=== PATIENT | male | born 1950 | race Caucasian/White ===

== ENCOUNTER 2017-06-21 13:11 | Emergency (ER) | payer OTHER ==
[~2017-06-21] VITALS: Ht 165.1 cm; Wt 108.9 kg
[~2017-06-21 13:11] MED LIST: AMLO5 PO; ASPI81CH PO; ATOR80 PO; CARV25 PO; CHLO25B PO; CLOP75 PO; GLYMET1.25; HYDCHL25 PO; INS70/30PN SC; INSDET100 SC; INSUASPI SC; INSULANPEN; LOTREL; METF500 PO; METO100ER PO; PROTANDIM PO; TRAZ50 PO; ZESTORETIC 20-121 EA PO; ZIAC
[2017-06-21 13:49] LABS: BASOPHILS ABSOLUTE AUTO 0.05 K/mm3 (0.00-0.23); BASOPHILS PERCENT AUTO 1 % (0-2); EOSINOPHILS ABSOLUTE AUTO 0.39 K/mm3 (0.00-0.68); EOSINOPHILS PERCENT AUTO 5 % (0-6); Hematocrit 34.6 % (37.0-53.0); Hemoglobin 11.6 g/dL (13.5-17.5); IMMATURE GRAN ABSOLUTE AUTO 0.04 K/mm3 (0.00-0.10); IMMATURE GRAN PERCENT AUTO 1 % (0-1); LYMPHOCYTES ABSOLUTE AUTO 1.81 K/mm3 (0.84-5.20); LYMPHOCYTES PERCENT AUTO 22 % (21-46); MONOCYTES ABSOLUTE AUTO 0.51 K/mm3 (0.16-1.47); MONOCYTES PERCENT AUTO 6 % (4-13); Mean Corpuscular HGB 32.9 pg (26.0-34.0); Mean Corpuscular HGB Conc 33.5 g/dL (31.5-36.5); Mean Corpuscular Volume 98 fL (80-100); Mean Platelet Volume 9.9 fL (9.1-12.4); NEUTROPHILS ABSOLUTE AUTO 5.36 K/mm3 (1.96-9.15); NEUTROPHILS PERCENT AUTO 66 % (41-73); Platelet Count 160 K/mm3 (150-400); RDW Coefficient Variation 14.3 % (11.7-14.2); RDW Standard Deviation 50.1 fL (35.1-46.3); Red Blood Cell Count 3.53 M/mm3 (4.30-5.90); White Blood Cell Count 8.16 K/mm3 (4.00-11.30)
[2017-06-21] MEDS ORDERED: CLOBET30L TOP (14:00)
[2017-06-21] MEDS ORDERED: LISI20 PO (14:00)
[2017-06-21] MEDS ORDERED: Lantus100 UNIT/1 IM (14:01)
[2017-06-21 14:03] LABS: Albumin, Blood 3.4 g/dL (3.4-5.0); Albumin/Globulin Ratio 0.9 (0.8-1.8); Bilirubin, Total 0.6 mg/dL (0.1-1.0); Bun/Creatinine Ratio 18.9 (12.0-20.0); Calcium, Blood 8.7 mg/dL (8.5-10.1); Creatinine, Blood 1.32 mg/dL (0.60-1.20); Globulin, Blood 3.6 g/dL (2.2-4.0); Magnesium, Blood 1.8 mg/dL (1.6-2.4); Potassium, Blood 3.5 mmol/L (3.5-5.5)
== END 2017-06-21 16:02 | disposition home or self-care (01) ==
LOC: ER 13:11
PROVIDERS: Emergency Medicine
DX: R55 Syncope and collapse (principal); I10 Essential (primary) hypertension; E11.9 Type 2 diabetes mellitus without complications; Z79.899 Other long term (current) drug therapy; Z79.4 Long term (current) use of insulin; Z79.82 Long term (current) use of aspirin; Z86.73 Personal history of transient ischemic attack (TIA), and cerebral infarction without residual deficits
CPT/HCPCS: 36415; 70450; 71046; 80053; 83735; 85025; 93005; 93010; 96360; 99284; J7030

== ENCOUNTER 2018-12-09 22:34 | Emergency (ER) | payer MEDICARE ==
[~2018-12-09] VITALS: Ht 165.1 cm; Wt 113.4 kg
[~2018-12-09 22:34] MED LIST changes: +CLOBET30L TOP; +LISI20 PO; +Lantus100 UNIT/1 IM
[2018-12-09 23:24] LABS: BASOPHILS ABSOLUTE AUTO 0.08 K/mm3 (0.00-0.23); BASOPHILS PERCENT AUTO 1 % (0-2); EOSINOPHILS ABSOLUTE AUTO 0.63 K/mm3 (0.00-0.68); EOSINOPHILS PERCENT AUTO 7 % (0-6); Hematocrit 38.7 % (37.0-53.0); Hemoglobin 12.9 g/dL (13.5-17.5); IMMATURE GRAN ABSOLUTE AUTO 0.04 K/mm3 (0.00-0.10); IMMATURE GRAN PERCENT AUTO 0 % (0-1); LYMPHOCYTES ABSOLUTE AUTO 1.89 K/mm3 (0.84-5.20); LYMPHOCYTES PERCENT AUTO 21 % (21-46); MONOCYTES ABSOLUTE AUTO 0.72 K/mm3 (0.16-1.47); MONOCYTES PERCENT AUTO 8 % (4-13); Mean Corpuscular HGB 32.8 pg (26.0-34.0); Mean Corpuscular HGB Conc 33.3 g/dL (31.5-36.5); Mean Corpuscular Volume 99 fL (80-100); Mean Platelet Volume 9.1 fL (9.1-12.4); NEUTROPHILS PERCENT AUTO 63 % (41-73); Platelet Count 224 K/mm3 (150-400); RDW Standard Deviation 50.4 fL (35.1-46.3); Red Blood Cell Count 3.93 M/mm3 (4.30-5.90); White Blood Cell Count 9.06 K/mm3 (4.00-11.30)
[2018-12-09 23:42] LABS: Albumin, Blood 3.6 g/dL (3.4-5.0); Albumin/Globulin Ratio 0.9 (0.8-1.8); Bilirubin, Total 0.5 mg/dL (0.1-1.0); Bun/Creatinine Ratio 8.9 (12.0-20.0); Calcium, Blood 9.2 mg/dL (8.5-10.1); Creatinine, Blood 1.8 mg/dL (0.60-1.20); Globulin, Blood 3.9 g/dL (2.2-4.0); Potassium, Blood 3.2 mmol/L (3.5-5.5); Total Protein, Blood 7.5 g/dL (6.4-8.2)
[2018-12-10] MEDS ORDERED: BENZ100A PO (01:29)
[2018-12-10] MEDS ORDERED: LOSA50 PO (01:52)
[2018-12-10] MEDS ORDERED: Prednisone50 MG PO (01:52)
== END 2018-12-10 02:36 | disposition home or self-care (01) ==
LOC: ER 22:34
PROVIDERS: Emergency Medicine
DX: J40 Bronchitis, not specified as acute or chronic (principal); N17.9 Acute kidney failure, unspecified; Z88.5 Allergy status to narcotic agent; Z88.8 Allergy status to other drugs, medicaments and biological substances; Z79.899 Other long term (current) drug therapy; Z79.84 Long term (current) use of oral hypoglycemic drugs; Z79.4 Long term (current) use of insulin; Z79.82 Long term (current) use of aspirin; E11.9 Type 2 diabetes mellitus without complications; Z86.73 Personal history of transient ischemic attack (TIA), and cerebral infarction without residual deficits; I10 Essential (primary) hypertension; Z87.891 Personal history of nicotine dependence
CPT/HCPCS: 36415; 71045; 80053; 83880; 85025; 93005; 93010; 94640; 99284-25; J7030; J7512

== ENCOUNTER 2019-02-12 19:05 | Emergency (ER) | payer MEDICARE ==
[~2019-02-12] VITALS: Ht 167.6 cm; Wt 113.4 kg
[~2019-02-12 19:05] MED LIST changes: +BENZ100A PO; +LOSA50 PO; +Prednisone50 MG PO
== END 2019-02-12 20:34 | disposition home or self-care (01) ==
LOC: ER 19:05
DX: S40.021A Contusion of right upper arm, initial encounter (principal); M70.32 Other bursitis of elbow, left elbow; Z88.5 Allergy status to narcotic agent; Z88.8 Allergy status to other drugs, medicaments and biological substances; Z79.899 Other long term (current) drug therapy; Z79.4 Long term (current) use of insulin; Z79.82 Long term (current) use of aspirin; Z86.73 Personal history of transient ischemic attack (TIA), and cerebral infarction without residual deficits; I10 Essential (primary) hypertension; E11.9 Type 2 diabetes mellitus without complications; E66.9 Obesity, unspecified; Z87.891 Personal history of nicotine dependence; W18.2XXA Fall in (into) shower or empty bathtub, initial encounter
CPT/HCPCS: 73030; 73080; 99283-25

== ENCOUNTER 2019-07-05 21:15 | Inpatient (IN) | payer OTHER, MEDICARE ==
[~2019-07-05] VITALS: Ht 167.6 cm; Wt 109.0 kg
[2019-07-05] MEDS ORDERED: AMLO10 PO (21:32)
[2019-07-05] MEDS ORDERED: ALLO100 PO (21:32)
[2019-07-05] MEDS ORDERED: ATOR20 PO (21:32)
[2019-07-05] MEDS ORDERED: Coreg25 MG PO (21:32)
[2019-07-05] MEDS ORDERED: ASPI325EC PO (21:32)
[2019-07-05] MEDS ORDERED: DONEPEZIL HCL10 MG PO (21:33)
[2019-07-05] MEDS ORDERED: FURO20 PO (21:33)
[2019-07-05] MEDS ORDERED: MITIGARE0.6 MG PO (21:33)
[2019-07-05] MEDS ORDERED: CHLO25B PO (21:33)
[2019-07-05] MEDS ORDERED: CLOP75 PO (21:33)
[2019-07-05] MEDS ORDERED: NOVOLOG100 UNIT/1 SC (21:34)
[2019-07-05] MEDS ORDERED: INSUGL100V SC (21:34)
[2019-07-05] MEDS ORDERED: METO5A PO (21:35)
[2019-07-05] MEDS ORDERED: METF500C PO (21:35)
[2019-07-05] MEDS ORDERED: LEVSOD25 PO (21:35)
[2019-07-05] MEDS ORDERED: ABAT250V (21:36)
[2019-07-05] MEDS ORDERED: POTCHL20ER PO (21:36)
--- NOTE | 2019-07-06 01:00 | NUR ---
RECEIVED HAND OFF FROM NITZA BARRAGAN IN ER USING SBAR. TRNSPORTED TO ROOM VIA STRETCHER. TRANSFERED TO BED WITH FULL STAFF ASSISTANCE AND LUIS LIFT IN ROOM, TOLERATED WELL. AAO X3, MOVES RIGHT SIDE EXTREMITIES WITHOUT DIFFICULTY. 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 ORIENTED TO ROOM, CALL SYSTEM, AND POC, VOICES UNDERSTANDING. RESPIRATIONS EVEN AND UNLABORED ON ROOM AIR. LUNG SOUNDS CLEAR AND DIMINISHED IN BASES BILATERALLY. TELEMETRY SHOWS NSR WITH PVC'S IN THE 70'S. ABDOMEN GUARDED, TENDER, AND MILDLY DISTENDED. BOWEL SOUNDS NOTED IN ALL QUADS. REPORTS LAST BM ON 07/05/19. RIGHT AC 18G PIV IS PATENT, FLUSHING WITH EASE. DENIES PAIN, DISCOMFORT, OR FURTHER NEEDS AT THIS TIME. ADMISSION ASSESSMENT IN PROGRESS. SAFETY MEASURES IN PLACE. WILL CONTINUE TO MONITOR.
[2019-07-06 04:09] LABS: BASOPHILS ABSOLUTE AUTO 0.08 K/mm3 (0.00-0.23); BASOPHILS PERCENT AUTO 1 % (0-2); EOSINOPHILS ABSOLUTE AUTO 0.11 K/mm3 (0.00-0.68); EOSINOPHILS PERCENT AUTO 1 % (0-6); Hematocrit 35.3 % (37.0-53.0); Hemoglobin 11.4 g/dL (13.5-17.5); IMMATURE GRAN ABSOLUTE AUTO 0.11 K/mm3 (0.00-0.10); IMMATURE GRAN PERCENT AUTO 1 % (0-1); LYMPHOCYTES ABSOLUTE AUTO 1.37 K/mm3 (0.84-5.20); LYMPHOCYTES PERCENT AUTO 10 % (21-46); MONOCYTES ABSOLUTE AUTO 1.27 K/mm3 (0.16-1.47); MONOCYTES PERCENT AUTO 9 % (4-13); Mean Corpuscular HGB 30.9 pg (26.0-34.0); Mean Corpuscular HGB Conc 32.3 g/dL (31.5-36.5); Mean Corpuscular Volume 96 fL (80-100); Mean Platelet Volume 9.4 fL (9.1-12.4); NEUTROPHILS ABSOLUTE AUTO 10.92 K/mm3 (1.96-9.15); NEUTROPHILS PERCENT AUTO 79 % (41-73); Platelet Count 226 K/mm3 (150-400); RDW Coefficient Variation 13.4 % (11.7-14.2); RDW Standard Deviation 47.5 fL (35.1-46.3); Red Blood Cell Count 3.69 M/mm3 (4.30-5.90); White Blood Cell Count 13.86 K/mm3 (4.00-11.30)
[2019-07-06 04:29] LABS: Calcium, Blood 8.9 mg/dL (8.5-10.1); Creatinine, Blood 1.4 mg/dL (0.60-1.20); Potassium, Blood 3.4 mmol/L (3.5-5.5)
--- NOTE | 2019-07-06 05:50 | NUR ---
SHIFT SUMMARY HAS RESTED WELL, GOOD INTAKE AND OUTPUT NOTED. PAIN MANAGED WITH FENTALY 25MCG IVP ONCE THIS SHIFT. IVF INFUSING TO 18G TO RIGHT AC PER MD ORDERS. SURGICAL CONSULT THIS AM. DENIES FURTHER NEEDS OR WANTS AT THIS TIME. SAFETY MEASURES IN PLACE. WILL GIVE HAND OFF TO ONCOMING SHIFT USING SBAR DURING BEDSIDE REPORT.
--- NOTE | 2019-07-06 06:35 | NUR ---
SURGICAL CONSULT CALLED TO DR. BEE'S ANSWERING SERVICE.
--- NOTE | 2019-07-06 18:41 | NUR ---
SHIFT SUMMARY- PT VITALS REMAIN STABLE, PAIN SEEMS WELL MANAGED WITH TYLENOL (PER PT). PT ALERT AND ORIENTED BUT FORGETFUL. PT IS A Q2 TURN D/T PRIOR CVA 18G IV PLACED BY IS MANAGER. PLAN IS FOR THE PT TO BE NPO AT MIDNIGHT AND GO FOR A DRAIN PLACEMENT TOMORROW MORNING (CT GUIDED). PT RUNNING NSR ON TELE WITH OCC PVC'S. BEDREST AT THIS TIME ATTENDS IN PLACE PT USES THE URINAL INDEPENDENTLY. PT SPOUSE PUT HER NUMBER ON THE BOARD AND WOULD LIKE A CALL SOON WE HAVE A TIME FOR THE PT PROCEDURE TOMORROW WILL PASS ON TO NIGHT RN IN REPORT.
--- NOTE | 2019-07-07 04:00 | NUR ---
BIOX ALARMING, OXYGEN LEVEL READING IN THE 80'S. PT WOKEN UP AND PLACED ON O2 AT 2L/NC, O2 SAT INCREASED TO 93. SAFETY MEASURES IN PLACE. WILL CONTINUE TO MONITOR.
[2019-07-07 08:23] LABS: BASOPHILS ABSOLUTE AUTO 0.06 K/mm3 (0.00-0.23); BASOPHILS PERCENT AUTO 1 % (0-2); EOSINOPHILS ABSOLUTE AUTO 0.14 K/mm3 (0.00-0.68); EOSINOPHILS PERCENT AUTO 1 % (0-6); Hematocrit 31.9 % (37.0-53.0); Hemoglobin 10.7 g/dL (13.5-17.5); IMMATURE GRAN ABSOLUTE AUTO 0.13 K/mm3 (0.00-0.10); IMMATURE GRAN PERCENT AUTO 1 % (0-1); LYMPHOCYTES ABSOLUTE AUTO 1.07 K/mm3 (0.84-5.20); LYMPHOCYTES PERCENT AUTO 9 % (21-46); MONOCYTES ABSOLUTE AUTO 1.03 K/mm3 (0.16-1.47); MONOCYTES PERCENT AUTO 9 % (4-13); Mean Corpuscular HGB 31.6 pg (26.0-34.0); Mean Corpuscular HGB Conc 33.5 g/dL (31.5-36.5); Mean Corpuscular Volume 94 fL (80-100); Mean Platelet Volume 9.5 fL (9.1-12.4); NEUTROPHILS ABSOLUTE AUTO 9.43 K/mm3 (1.96-9.15); NEUTROPHILS PERCENT AUTO 80 % (41-73); Platelet Count 255 K/mm3 (150-400); RDW Coefficient Variation 13.3 % (11.7-14.2); RDW Standard Deviation 45.9 fL (35.1-46.3); Red Blood Cell Count 3.39 M/mm3 (4.30-5.90); White Blood Cell Count 11.86 K/mm3 (4.00-11.30)
[2019-07-07 08:38] LABS: International Normalized Ratio 1.07; Prothrombin Time Results 11.4 Sec (9.7-11.5)
[2019-07-07 08:42] LABS: Albumin, Blood 2.3 g/dL (3.4-5.0); Anion Gap 7 mmol/L (6-16); Blood Urea Nitrogen 12 mg/dL (8-24); Bun/Creatinine Ratio 8.3 (12.0-20.0); CO2, Blood 27 mmol/L (21-32); Calcium, Blood 8.6 mg/dL (8.5-10.1); Chloride, Blood 101 mmol/L (98-108); Creatinine, Blood 1.45 mg/dL (0.60-1.20); Glomerular Filtration Rate 51 (60-); Glucose, Blood 258 mg/dL (70-99); Phosphorus, Blood 2.7 mg/dL (2.5-4.9); Potassium, Blood 3.3 mmol/L (3.5-5.5); Sodium, Blood 135 mmol/L (136-145)
--- NOTE | 2019-07-07 17:21 | NUR ---
SHIFT ASSESMENT PT A&O WITH DELAYED RESPONDS DUE TO HX OF CVA WITH LEFT SIDED WEAKNESS. PT TOLORATED PROCEDURE THIS SHIFT TO PLACE DRAIN TUBE. PT HAS BEEN MEDICATED X2 THIS SHIFT. PT WAS NPO UNTIL 1400 AND PLANS TO EAT REGULAR DIET FOR DINNER. PT CATHERINE ANY NAUSEA THIS SHIFT. PT WAS TAKEN OF TELE FOR PROCEDURE. PT HAS DRESSING AROUND TUBE THAT IS CLEAN AND DRY. PT IS ON ROOM AIR AND SATING AT 90% PT HAS CALL LIGHT WITH IN REACH AND WILL REPORT TO ONCOMING SHIFT.
--- NOTE | 2019-07-08 06:27 | NUR ---
SHIFT SUMMARY: ELINA HAD A DRAIN TUBE PLACED IN THE RUQ YESTERDAY FOR ABSCESSED APPENDIX. HE IS TOLERATING AN ADA DIET WELL. HE RESTED WELL DURING THE NIGHT WITH HIS CPAP FROM HOME IN PLACE. CONTINUOUS BIOX IN PLACE. HE IS ABLE TO MAKE HIS NEEDS KNOWN. IVs TO LEFT FOREARM AND AC PATENT, FLUIDS INFUSING. HE USES HIS CALL LIGHT APPROPRIATELY. HE USES THE URINAL WITHOUT DIFFICULTY. HE IS LYING IN BED WITH HIS CALL LIGHT IN REACH. WILL REPORT TO DAY SHIFT RN.
[2019-07-08 06:29] LABS: BASOPHILS PERCENT AUTO 1 % (0-2); EOSINOPHILS ABSOLUTE AUTO 0.24 K/mm3 (0.00-0.68); EOSINOPHILS PERCENT AUTO 2 % (0-6); Hematocrit 31.4 % (37.0-53.0); Hemoglobin 10.3 g/dL (13.5-17.5); IMMATURE GRAN ABSOLUTE AUTO 0.11 K/mm3 (0.00-0.10); IMMATURE GRAN PERCENT AUTO 1 % (0-1); LYMPHOCYTES ABSOLUTE AUTO 1.45 K/mm3 (0.84-5.20); LYMPHOCYTES PERCENT AUTO 15 % (21-46); MONOCYTES ABSOLUTE AUTO 0.86 K/mm3 (0.16-1.47); MONOCYTES PERCENT AUTO 9 % (4-13); Mean Corpuscular HGB 30.8 pg (26.0-34.0); Mean Corpuscular HGB Conc 32.8 g/dL (31.5-36.5); Mean Corpuscular Volume 94 fL (80-100); Mean Platelet Volume 9.3 fL (9.1-12.4); NEUTROPHILS ABSOLUTE AUTO 7.23 K/mm3 (1.96-9.15); NEUTROPHILS PERCENT AUTO 72 % (41-73); Platelet Count 250 K/mm3 (150-400); RDW Coefficient Variation 13.4 % (11.7-14.2); RDW Standard Deviation 45.9 fL (35.1-46.3); Red Blood Cell Count 3.34 M/mm3 (4.30-5.90); White Blood Cell Count 9.99 K/mm3 (4.00-11.30)
[2019-07-08 06:48] LABS: Albumin, Blood 2.2 g/dL (3.4-5.0); Anion Gap 6 mmol/L (6-16); Blood Urea Nitrogen 11 mg/dL (8-24); Bun/Creatinine Ratio 7.5 (12.0-20.0); CO2, Blood 28 mmol/L (21-32); Calcium, Blood 8.5 mg/dL (8.5-10.1); Chloride, Blood 102 mmol/L (98-108); Creatinine, Blood 1.46 mg/dL (0.60-1.20); Glomerular Filtration Rate 51 (60-); Glucose, Blood 259 mg/dL (70-99); Magnesium, Blood 1.9 mg/dL (1.6-2.4); Phosphorus, Blood 2.6 mg/dL (2.5-4.9); Potassium, Blood 3.4 mmol/L (3.5-5.5); Sodium, Blood 136 mmol/L (136-145)
--- NOTE | 2019-07-08 18:15 | NUR ---
EDU PT RE REFUSING LOVENOX; STILL REFUSED.
--- NOTE | 2019-07-08 18:20 | NUR ---
SHIFT SUMMARY PT A&OX4, VSS, POD1 DRAIN PLACEMENT FOR APPY ABSCESS, IV ABX INFUSED PER EMAR. PAIN MANAGED WITH FENT 25MCGS X1 AND TYLENOL. CBGS COVERED PER EMAR. FRANK ADA DIET, DENIES N&V. VOIDING WELL USING URINAL AT BEDSIDE. HOME CPAP & BIOX AT BEDSIDE. TELE NSR W/OCC PVCS @ 75 BPM. 2 IVS RUE. WILL REPORT TO ONCOMING NOC RN.
--- NOTE | 2019-07-09 03:42 | NUR ---
PATIENT REQUIRED BBG SUX, SUBSTERNAL RETACTIONS AND RR OF 43 PRIOR TO SUCTIONING. MODERATE AMOUNT OF MUCUS. PATIENT BIOX 96%. VOIDING AND NURSING WELL.
--- NOTE | 2019-07-09 04:12 | NUR ---
@ 0245 PATIENT CONVERTED FROM SINUS RHYTHM TO AFIB. HR FROM 70'S TO 80'S. PATIENT HAS NO HISTORY OF AFIB THAT HE REMEMBERS. WILL NOTIFY MD IN THE AM. PATIENT IS VOIDING WELL. ABCESS DRAIN IS CONTINUING TO PUT OUT THICK PURLULENT BLOODY DRAINAGE. CPAP MASK ON ALL NIGHT. PATIENT HAS SLEPT WELL. hE DID STATE THAT AT AROUND 0245 HE FELT FLUSHED AND A LITTLE SWEATY. CALL LIGHT IN REACH, USING IT APPROPRIATELY.
[2019-07-09 05:26] LABS: BASOPHILS ABSOLUTE AUTO 0.07 K/mm3 (0.00-0.23); BASOPHILS PERCENT AUTO 1 % (0-2); EOSINOPHILS ABSOLUTE AUTO 0.35 K/mm3 (0.00-0.68); EOSINOPHILS PERCENT AUTO 5 % (0-6); Hematocrit 33.3 % (37.0-53.0); IMMATURE GRAN ABSOLUTE AUTO 0.08 K/mm3 (0.00-0.10); IMMATURE GRAN PERCENT AUTO 1 % (0-1); LYMPHOCYTES PERCENT AUTO 19 % (21-46); MONOCYTES ABSOLUTE AUTO 0.57 K/mm3 (0.16-1.47); MONOCYTES PERCENT AUTO 8 % (4-13); Mean Corpuscular Volume 94 fL (80-100); Mean Platelet Volume 9.3 fL (9.1-12.4); NEUTROPHILS ABSOLUTE AUTO 4.88 K/mm3 (1.96-9.15); NEUTROPHILS PERCENT AUTO 66 % (41-73); Platelet Count 263 K/mm3 (150-400); RDW Coefficient Variation 13.4 % (11.7-14.2); RDW Standard Deviation 46.2 fL (35.1-46.3); Red Blood Cell Count 3.55 M/mm3 (4.30-5.90); White Blood Cell Count 7.35 K/mm3 (4.00-11.30)
[2019-07-09 05:44] LABS: Albumin, Blood 2.1 g/dL (3.4-5.0); Anion Gap 5 mmol/L (6-16); Blood Urea Nitrogen 10 mg/dL (8-24); Bun/Creatinine Ratio 6.9 (12.0-20.0); CO2, Blood 28 mmol/L (21-32); Calcium, Blood 8.8 mg/dL (8.5-10.1); Chloride, Blood 103 mmol/L (98-108); Creatinine, Blood 1.45 mg/dL (0.60-1.20); Glomerular Filtration Rate 51 (60-); Glucose, Blood 280 mg/dL (70-99); Phosphorus, Blood 2.2 mg/dL (2.5-4.9); Potassium, Blood 3.3 mmol/L (3.5-5.5); Sodium, Blood 136 mmol/L (136-145)
--- NOTE | 2019-07-09 06:51 | NUR ---
@ 0530 pt converted to sinus rhythm. Patient alert, stated that he did not get any sleep last night because he was waiting for his who did not show up. Pain medication given for abd pain. abdominal drain has slowed down.
--- NOTE | 2019-07-09 15:32 | NUR ---
SHIFT SUMMARY PT A&OX4, VSS, CBGS REQUIRED COVERAGE. TELE DC'D. S/P DRAIN RIGHT ABD, WNL. PAIN MANAGED WITH TYLENOL AND 25 MCGS FENT PRN. FRANK PO, DENIES N&V. VOIDING WELL USING URINAL OR BSC; BM TODAY. AMB W/HEMIWALKER AND 2 PP MOD ASSIST; UP TO CHAIR T/O SHIFT. CONTINUE IV ABX. PLAN FOR CT WITH CONTRAST WEDNESDAY; CONTRAST IN PANTRY REFRIGERATOR TO START AT 0430/DIRECTIONS ARE WRITTEN ON BOTTLE AND SCHEDULED FOR [id number]. WILL REPORT TO MARINA CAMPA RN.
--- NOTE | 2019-07-09 17:53 | NUR ---
TELEPHONE CALL WITH HOSPITALIST R/T DC TELE ORDER AND WHEN I CALLED PCU TELE ETHICS OFFICER PT WAS IN AFIB 80-90S. PUT IN ORDER FOR EKG. TELEPHONE CALL TO WITH RESULTS FROM EKG. SAID SHE WILL PUT IN ORDERS.
--- NOTE | 2019-07-10 04:36 | NUR ---
PATIENT SLEPT WITH CPAP ON AND CONT. BIOX. NO ISSUES. CONTINENT OF URINE, USES URINAL. IV POTASSIUM FINISHED AT 0040 THIS MORNING. WILL CHECK AM LABS FOR TRENDS. ORAL CONTRAST STARTED AT 0430. PT WILL GO TO CT AROUND 6-630. NO ACUTE CHANGES.
[2019-07-10 05:08] LABS: Hematocrit 34.2 % (37.0-53.0); Hemoglobin 11.2 g/dL (13.5-17.5)
[2019-07-10 05:40] LABS: Bun/Creatinine Ratio 7.3 (12.0-20.0); Creatinine, Blood 1.51 mg/dL (0.60-1.20); Potassium, Blood 3.3 mmol/L (3.5-5.5)
--- NOTE | 2019-07-10 06:04 | NUR ---
PATIENT TRANSPORTED TO CT VIA STRETCHER
--- NOTE | 2019-07-10 08:08 | NUR ---
dr. cross emptied 275ml from abd drain.
--- NOTE | 2019-07-10 08:22 | NUR ---
DOCTOR ROUNDING DR. BEE ROUNDED ON PT THIS MORINING. DRAIN WAS FLUSHED AND EMPTIED BY DR. BEE. PLAN TO CONTINUE TO MONITOR DRAIN OUTPUT. PT DENIES PAIN, HE IS AWAKE AND INTERACTIVE WITH CARE.
--- NOTE | 2019-07-10 10:32 | NUR ---
Echocardiogram completed.
--- NOTE | 2019-07-10 13:29 | NUR ---
DOCTOR ROUNDS DR. BEE ROUNDED ON PT. PT HAS HAD MINIMAL OUTPUT FROM HIS PIGTAIL DRAIN. DRAIN WAS REMOVED BY DR. BEE. PLAN FOR DISCHARGE AT THIS TIME.
[2019-07-10] MEDS ORDERED: AMOCLA875 PO (14:41)
[2019-07-10] MEDS ORDERED: HIGH POTENCY P1 EACH PO (14:43)
--- NOTE | 2019-07-10 15:47 | NUR ---
DISCHARGE NOTE: WRITTEN AND VERBAL DISCHARGE PAPERS WITH INSTRUCTIONS WERE GIVEN TO PATIENT. PATIENT VERBALIZED THAT HE UNDERSTOOD AND ASKED QUESTIONS WHEN NEEDED. HE WAS WHEELCHAIRED OUT TO AND SET INSIDE HIS 'S CAR SAFELY. HE WAS ALERT AND ORIENTEDX4 AND VITALS WERE STABLE UPON DISCHARGE. HE SEEMED PLEASENT WHEN LEAVING.
--- NOTE | 2019-07-10 15:54 | NUR ---
DISCHARGE PT PROVIDED WITH WRITTEN AND VERBAL DISCHARGE INSTRUCTIONS; PT VERBALIZED UNDERSTANDING. PT ESCORTED OUT IN W/C BY SALVADOR RUBIO. PT ADVISED TO CALL DR. BEE'S OFFICE TO SCHEDULE FOLLOW-UP APPOINTMENT.
== END 2019-07-10 15:42 | disposition home or self-care (01) | DRG 372 ==
LOC: ER 21:15 → SURS 23:26 → ER 07-06 00:04 → SURS 07-06 00:04
PROVIDERS: Internal Medicine; ADMIT Internal Medicine
PROC: 0D9J30Z Drainage of Appendix with Drainage Device, Percutaneous Approach (ICD-10-PCS; principal; 2019-07-07)
DX: K35.33 Acute appendicitis with perforation, localized peritonitis, and gangrene, with abscess (principal); I69.354 Hemiplegia and hemiparesis following cerebral infarction affecting left non-dominant side; I13.0 Hypertensive heart and chronic kidney disease with heart failure and stage 1 through stage 4 chronic kidney disease, or unspecified chronic kidney disease; I48.91 Unspecified atrial fibrillation; R09.02 Hypoxemia; E11.22 Type 2 diabetes mellitus with diabetic chronic kidney disease; N18.3 Chronic kidney disease, stage 3 (moderate); I50.9 Heart failure, unspecified; E66.01 Morbid (severe) obesity due to excess calories; G47.33 Obstructive sleep apnea (adult) (pediatric); E78.5 Hyperlipidemia, unspecified; E03.9 Hypothyroidism, unspecified; K21.9 Gastro-esophageal reflux disease without esophagitis; M10.9 Gout, unspecified; E83.39 Other disorders of phosphorus metabolism; E87.6 Hypokalemia; Z79.4 Long term (current) use of insulin; Z87.891 Personal history of nicotine dependence; E78.00 Pure hypercholesterolemia, unspecified; B95.4 Other streptococcus as the cause of diseases classified elsewhere; E11.65 Type 2 diabetes mellitus with hyperglycemia
CPT/HCPCS: 36415; 49405; 71046; 74177; 80048; 80069; 82947; 83605; 83735; 85014; 85018; 85025; 85610; 85730; 87040; 87070; 87075; 87205; 93005; 93010; 93306; 94660; 94762; 96365; 96375; 97116; 97162; 99285-25; A9270; A9270-GY; C9113; J1170; J1815; J2543; J3010; J3480; J7042; J7050; J7060; Q9967

== ENCOUNTER 2020-04-20 14:57 | Emergency (ER) | payer OTHER, MEDICARE ==
[~2020-04-20] VITALS: Ht 162.6 cm; Wt 115.2 kg
[~2020-04-20 14:57] MED LIST changes: +ABAT250V; +ALLO100 PO; +AMLO10 PO; +AMOCLA875 PO; +ASPI325EC PO; +ATOR20 PO; +Coreg25 MG PO; +DONEPEZIL HCL10 MG PO; +FURO20 PO; +HIGH POTENCY P1 EACH PO; +INSUGL100V SC; +LEVSOD25 PO; +METF500C PO; +METO5A PO; +MITIGARE0.6 MG PO; +NOVOLOG100 UNIT/1 SC; +POTCHL20ER PO
[2020-04-20 15:38] LABS: BASOPHILS ABSOLUTE AUTO 0.11 K/mm3 (0.00-0.23); BASOPHILS PERCENT AUTO 1 % (0-2); EOSINOPHILS ABSOLUTE AUTO 0.38 K/mm3 (0.00-0.68); EOSINOPHILS PERCENT AUTO 4 % (0-6); Hematocrit 44.3 % (37.0-53.0); Hemoglobin 14.5 g/dL (13.5-17.5); IMMATURE GRAN ABSOLUTE AUTO 0.06 K/mm3 (0.00-0.10); IMMATURE GRAN PERCENT AUTO 1 % (0-1); LYMPHOCYTES ABSOLUTE AUTO 1.58 K/mm3 (0.84-5.20); LYMPHOCYTES PERCENT AUTO 14 % (21-46); MONOCYTES ABSOLUTE AUTO 0.71 K/mm3 (0.16-1.47); MONOCYTES PERCENT AUTO 7 % (4-13); Mean Corpuscular HGB 31.1 pg (26.0-34.0); Mean Corpuscular HGB Conc 32.7 g/dL (31.5-36.5); Mean Corpuscular Volume 95 fL (80-100); NEUTROPHILS ABSOLUTE AUTO 8.14 K/mm3 (1.96-9.15); NEUTROPHILS PERCENT AUTO 74 % (41-73); Platelet Count 203 K/mm3 (150-400); RDW Coefficient Variation 13.6 % (11.7-14.2); RDW Standard Deviation 47.1 fL (35.1-46.3); Red Blood Cell Count 4.66 M/mm3 (4.30-5.90); White Blood Cell Count 10.98 K/mm3 (4.00-11.30)
[2020-04-20 15:52] LABS: Albumin, Blood 3.6 g/dL (3.4-5.0); Albumin/Globulin Ratio 0.8 (0.8-1.8); Bilirubin, Total 0.7 mg/dL (0.1-1.0); Bun/Creatinine Ratio 13.5 (12.0-20.0); Calcium, Blood 9.6 mg/dL (8.5-10.1); Creatinine, Blood 1.63 mg/dL (0.60-1.20); Globulin, Blood 4.7 g/dL (2.2-4.0); Potassium, Blood 3.5 mmol/L (3.5-5.5); Total Protein, Blood 8.3 g/dL (6.4-8.2)
[2020-04-20 16:36] LABS: Source, Urine Clean Catch
[2020-04-20 16:49] LABS: Appearance, Urine Clear (Clear); Bilirubin, Urine Neg (Neg); Blood, Urine 1+ (Neg); Color, Urine Yellow (P-Yellow); Glucose Qualitative, Urine 4+ (Neg); Ketones, Urine Neg (Neg); Leukocyte Esterase, Urine Neg (Neg); Nitrite, Urine Neg (Neg); Protein, Urine Neg (Neg); Urobilinogen, Urine NORM (Normal)
[2020-04-20 16:58] LABS: Bacteria Few /hpf; Red Blood Cells, Urine 0-2 /hpf (0-2); Squamous Epithelial Cells Not Seen /hpf (Few); White Blood Cells, Urine 0-2 /hpf (0-5)
== END 2020-04-20 19:02 | disposition home or self-care (01) ==
LOC: ER 14:57
PROVIDERS: Emergency Medicine
DX: R42 Dizziness and giddiness (principal); E11.9 Type 2 diabetes mellitus without complications; I10 Essential (primary) hypertension; Z79.02 Long term (current) use of antithrombotics/antiplatelets; Z79.4 Long term (current) use of insulin; Z79.899 Other long term (current) drug therapy; Z79.82 Long term (current) use of aspirin; Z88.5 Allergy status to narcotic agent; Z88.8 Allergy status to other drugs, medicaments and biological substances; Z87.891 Personal history of nicotine dependence
CPT/HCPCS: 36415; 80053; 81001; 85025; 93005; 93010; 99284-25

== ENCOUNTER 2020-06-13 17:54 | Inpatient (IN) | payer OTHER, MEDICARE ==
[~2020-06-13] VITALS: Ht 180.3 cm; Wt 109.1 kg
[~2020-06-13 17:54] MED LIST changes: +NOVOLOG FL100 UNIT/3 SC; -NOVOLOG100 UNIT/1 SC
[2020-06-13 19:15] LABS: BASOPHILS PERCENT AUTO 1 % (0-2); EOSINOPHILS PERCENT AUTO 2 % (0-6); Hematocrit 45.6 % (37.0-53.0); Hemoglobin 15.1 g/dL (13.5-17.5); IMMATURE GRAN ABSOLUTE AUTO 0.07 K/mm3 (0.00-0.10); IMMATURE GRAN PERCENT AUTO 1 % (0-1); LYMPHOCYTES ABSOLUTE AUTO 1.38 K/mm3 (0.84-5.20); LYMPHOCYTES PERCENT AUTO 12 % (21-46); MONOCYTES ABSOLUTE AUTO 0.73 K/mm3 (0.16-1.47); MONOCYTES PERCENT AUTO 6 % (4-13); Mean Corpuscular HGB 30.5 pg (26.0-34.0); Mean Corpuscular HGB Conc 33.1 g/dL (31.5-36.5); Mean Corpuscular Volume 92 fL (80-100); Mean Platelet Volume 9.5 fL (9.1-12.4); NEUTROPHILS ABSOLUTE AUTO 9.54 K/mm3 (1.96-9.15); NEUTROPHILS PERCENT AUTO 79 % (41-73); Platelet Count 225 K/mm3 (150-400); RDW Coefficient Variation 13.4 % (11.7-14.2); RDW Standard Deviation 45.4 fL (35.1-46.3); Red Blood Cell Count 4.95 M/mm3 (4.30-5.90); White Blood Cell Count 12.02 K/mm3 (4.00-11.30)
[2020-06-13 19:35] LABS: Albumin, Blood 4.1 g/dL (3.4-5.0); Albumin/Globulin Ratio 0.9 (0.8-1.8); Bilirubin, Total 0.7 mg/dL (0.1-1.0); Bun/Creatinine Ratio 16.3 (12.0-20.0); Calcium, Blood 9.7 mg/dL (8.5-10.1); Creatinine, Blood 1.47 mg/dL (0.60-1.20); Globulin, Blood 4.5 g/dL (2.2-4.0); Potassium, Blood 3.1 mmol/L (3.5-5.5); Total Protein, Blood 8.6 g/dL (6.4-8.2); Troponin I 0.069 ng/mL (0.000-0.040)
--- NOTE | 2020-06-14 00:12 | NUR ---
PT TO ROOM PCU 15. A/O, ANSWERING QUESTIONS APPROPRIATELY. HAS L SIDE WEAKNESS AND REPORTS USING LIFT CHAIR AT HOME AT BASELINE. DENIES CHEST PAIN/PRESSURE AT THIS TIME. TELE IN PLACE. MEDS GIVEN PER ORDERS. ORIENTED TO ROOM AND CALL LIGHT. URINAL AT BEDSIDE; PT REPORTS USING URINAL IND AT HOME. PHOTOS TAKEN OF BACK/COCCYX AND IN CHART. PT RESTING IN BED AT THIS TIME.
--- NOTE | 2020-06-14 04:33 | NUR ---
SHIFT SUMMARY PT WAS ADMITTED TO PCU ROOM 15 THIS SHIFT. HE HAS BEEN A/O X4 OVERNIGHT. SINCE ADMISSION HE HAS DENIED CHEST PAIN/PRESSURE AND SOB. TELE IN PLACE OVERNIGHT. TOLERATING PO INTAKE AND VOIDING USING URINAL. PT DOES HAVE L SIDE WEAKNESS FROM PREVIOUS CVA AND REPORTS HE USES A LIFT CHAIR AND JOSLYN WALKER AT HOME. REDNESS NOTED TO SACRAL AREA; PHOTOS TAKEN AND IN CHART AND MEPILEX APPLIED. PT RESTING IN BED AT THIS TIME WITH CALL LIGHT IN REACH.
--- NOTE | 2020-06-14 06:23 | NUR ---
TROPONIN NOTIFIED PROVIDER OF TROPONINS TRENDING UP. DR. RO REPORTS HE WILL PUT IN ORDERS TO START HEPARIN DRIP.
[2020-06-14 07:50] LABS: International Normalized Ratio 1.04; Prothrombin Time Results 11.1 Sec (9.7-11.5)
[2020-06-14 08:29] LABS: BASOPHILS ABSOLUTE AUTO 0.08 K/mm3 (0.00-0.23); BASOPHILS PERCENT AUTO 1 % (0-2); EOSINOPHILS ABSOLUTE AUTO 0.11 K/mm3 (0.00-0.68); EOSINOPHILS PERCENT AUTO 1 % (0-6); Hematocrit 43.6 % (37.0-53.0); Hemoglobin 14.1 g/dL (13.5-17.5); IMMATURE GRAN ABSOLUTE AUTO 0.04 K/mm3 (0.00-0.10); IMMATURE GRAN PERCENT AUTO 0 % (0-1); LYMPHOCYTES ABSOLUTE AUTO 2.15 K/mm3 (0.84-5.20); LYMPHOCYTES PERCENT AUTO 21 % (21-46); MONOCYTES ABSOLUTE AUTO 0.71 K/mm3 (0.16-1.47); MONOCYTES PERCENT AUTO 7 % (4-13); Mean Corpuscular HGB 30.2 pg (26.0-34.0); Mean Corpuscular HGB Conc 32.3 g/dL (31.5-36.5); Mean Corpuscular Volume 93 fL (80-100); Mean Platelet Volume 10.2 fL (9.1-12.4); NEUTROPHILS ABSOLUTE AUTO 6.96 K/mm3 (1.96-9.15); NEUTROPHILS PERCENT AUTO 69 % (41-73); Platelet Count 205 K/mm3 (150-400); RDW Coefficient Variation 13.6 % (11.7-14.2); RDW Standard Deviation 46.2 fL (35.1-46.3); Red Blood Cell Count 4.67 M/mm3 (4.30-5.90); White Blood Cell Count 10.05 K/mm3 (4.00-11.30)
[2020-06-14 08:36] LABS: Albumin, Blood 3.4 g/dL (3.4-5.0); Anion Gap 9 mmol/L (6-16); Blood Urea Nitrogen 22 mg/dL (8-24); Bun/Creatinine Ratio 15.8 (12.0-20.0); CO2, Blood 28 mmol/L (21-32); Calcium, Blood 9.5 mg/dL (8.5-10.1); Chloride, Blood 105 mmol/L (98-108); Creatinine, Blood 1.39 mg/dL (0.60-1.20); Glomerular Filtration Rate 53 (60-); Glucose, Blood 144 mg/dL (70-99); Phosphorus, Blood 3.2 mg/dL (2.5-4.9); Potassium, Blood 3.3 mmol/L (3.5-5.5); Sodium, Blood 142 mmol/L (136-145)
[2020-06-14 14:42] LABS: Cholesterol 149 mg/dL (50-200); HDL Cholesterol 30 mg/dL (>39); LDL/HDL RATIO 2.1; Low Density Lipoprotein Chol 63 mg/dL (0-110); Triglycerides 282 mg/dL (30-160); Very Low Density Lipoprot Chol 56 mg/dL (6-32)
--- NOTE | 2020-06-14 15:08 | NUR ---
CARDIOLOGY CONSULT PT TROP INCREASED TO 1.97. CARDIO CONSULT PLACED BY DR. MCCOLLUM & CALLED BY THIS RN.
--- NOTE | 2020-06-14 16:36 | NUR ---
SHIFT SUMMARY PT COMPLETED STRESS TEST TODAY. AWAITING RESULTS. ECHO COMPLETED. TROPONIN INCREASED TO 1.97 TODAY. MD NOTIFIED & CARDIO CONSULTED. PT DENIES CP T/O THE DAY. VS REVIEWED & STABLE. HEPARIN TITRATED UP & BOLUSED THIS AFTERNOON. CURRENLTY RUNNING 15 U/KG/HR AND 26.4 ML/HR. NO OTHER ACUTE CHANGES IN ASSESSMENT AT THIS TIME. PT RESTING IN BED. AT BEDSIDE. CPAP BROUGHT IN FOR NIGHTIME. RT NOTIFIED. PT DENIES ANY NEEDS AT THIS TIME.
[2020-06-15 05:51] LABS: BASOPHILS ABSOLUTE AUTO 0.12 K/mm3 (0.00-0.23); BASOPHILS PERCENT AUTO 1 % (0-2); EOSINOPHILS ABSOLUTE AUTO 0.26 K/mm3 (0.00-0.68); EOSINOPHILS PERCENT AUTO 3 % (0-6); Hematocrit 42.6 % (37.0-53.0); IMMATURE GRAN ABSOLUTE AUTO 0.03 K/mm3 (0.00-0.10); IMMATURE GRAN PERCENT AUTO 0 % (0-1); LYMPHOCYTES ABSOLUTE AUTO 2.77 K/mm3 (0.84-5.20); LYMPHOCYTES PERCENT AUTO 33 % (21-46); MONOCYTES ABSOLUTE AUTO 0.69 K/mm3 (0.16-1.47); MONOCYTES PERCENT AUTO 8 % (4-13); Mean Corpuscular HGB 30.6 pg (26.0-34.0); Mean Corpuscular HGB Conc 32.9 g/dL (31.5-36.5); Mean Corpuscular Volume 93 fL (80-100); Mean Platelet Volume 9.5 fL (9.1-12.4); NEUTROPHILS ABSOLUTE AUTO 4.62 K/mm3 (1.96-9.15); NEUTROPHILS PERCENT AUTO 54 % (41-73); Platelet Count 190 K/mm3 (150-400); RDW Coefficient Variation 13.5 % (11.7-14.2); RDW Standard Deviation 45.6 fL (35.1-46.3); Red Blood Cell Count 4.57 M/mm3 (4.30-5.90); White Blood Cell Count 8.49 K/mm3 (4.00-11.30)
[2020-06-15 06:09] LABS: Albumin, Blood 3.3 g/dL (3.4-5.0); Anion Gap 10 mmol/L (6-16); Blood Urea Nitrogen 22 mg/dL (8-24); Bun/Creatinine Ratio 14.9 (12.0-20.0); CO2, Blood 29 mmol/L (21-32); Calcium, Blood 9.6 mg/dL (8.5-10.1); Chloride, Blood 104 mmol/L (98-108); Creatinine, Blood 1.48 mg/dL (0.60-1.20); Glomerular Filtration Rate 50 (60-); Glucose, Blood 124 mg/dL (70-99); Magnesium, Blood 2.2 mg/dL (1.6-2.4); Potassium, Blood 2.9 mmol/L (3.5-5.5); Sodium, Blood 143 mmol/L (136-145)
--- NOTE | 2020-06-15 06:38 | NUR ---
SHIFT SUMMARY PT AOX4. NO ACUTE CHANGES OVERNIGHT. PT COMFORTBALE SLEEPING T/O SHIFT. HE HAS BEEN USING HIS CPAP MACHINE AT BEDSIDE. PT DENIES CP, SOB, NUMBNESS, TINGLING SENSATION. HEPARIN TITRATE LAST NIGHT WITH CHANGES TO 17 UNITS/26.4/88KG AND BOLUS. HE IS NPO AT MIDNIGHT. STOPPED HEPARIN DRIP AT 0600 FOR CORONARY ANGIO TODAY. CALL LIGHT WITHIN REACH. WILL PROVIDE TO ONCOMING NURSE.
[2020-06-15 10:36] LABS: Influenza A, PCR NEGATIVE (NEGATIVE); Influenza B, PCR NEGATIVE (NEGATIVE); Resp Syncytial Virus, PCR NEGATIVE (NEGATIVE); SARS-Cov-2 (COVID-19) PCR, MMC NEGATIVE (NEGATIVE)
--- NOTE | 2020-06-15 11:53 | NUR ---
MORNING UPDATE PT HAS BEEN AWAKE, HE PARTICIPATED IN MORNING REPORT. PT IS PREPARED FOR THE ANGIO THIS MORNING, HEP GTT WAS STOPPED AT 0600 AND THE PT HAS BEEN NPO SINCE 0000. PT'S K+ WAS LOW THIS MORNING AND HAS BEEN REPLACE WITH 60 MEQ OF ORAL K-DUR. PT LEFT FOR ANGIO AT APPROXIMATELY 1130. VS STABLE, PT ON RA AND ABLE TO INDEPENDENTLY USE THE URINAL IN BED.
--- NOTE | 2020-06-15 14:55 | NUR ---
RETURN FROM HEART CENTER PT RETURNED FROM THE HEART CENTER FOLOWING AN ANGIOGRAM AND STENT PLACEMENT. PT IS DROWSY FROM MEDICATION AND NEEDS 2L O2 AT THIS TIME TO MAINTAIN SATURATION ABOVE 90%. TR BAND, WINDOW AND ARM BOARD ARE IN PLACE, NO DRAINAGE REDNESS OR SWELLING PRESENT. RADIAL PULSE IS STRONG. PT DENIES PAIN AND DISCOMFORT AND SOB. FAMILY HAS BEEN CALLED AND UPDATED PER PT'S REQUEST. PT CURRENTLY RESTING AT THIS TIME; WILL CONTINUE WITH RECOVERY
--- NOTE | 2020-06-15 16:48 | NUR ---
TR BAND DEFLATION NO DRAINAGE, SWELLING OR REDNESS AT THE SITE. ARM BOARD AND WINDOW DRESSING IN PLACE WITH TR BAND. 10ML AIR WITHIN TR BAND, 2ML HAS BEEN REMOVED AT 1640. VS STABLE, NO DRAINAGE AT THE SITE. WILL CONTINUE TO MONITOR AND REDUCE AIR IN TR BAND
--- NOTE | 2020-06-15 18:13 | NUR ---
SHIFT SUMMARY TR BAND HAS BEEN DEFLATED, 10ML IN TOTAL HAS BEEN REMOVED. SCANT AMOUNT OF SERISANGUANIOUS DRAINAGE UNDER THE TR BAND. PT HAS STRONG RADIAL PULSE, FULL SENSATION AND GOOD PROFUSION ACCORDING TO THE PULSE OXIMETER. PT HAD ONE STENT PLACED DURING HIS ANGIO TODAY AND HAS DONE WELL IN RECOVERY, VS STABLE, PT ON RA CURRENTLY AND TR BAND HAS BEEN COMPLETLY DEFLATED OF 1812. PT IS ABLE TO USE THE URINAL INDEPENDENTLY IN BED. PT IS IN BED TALKING WITH HIS AT THIS TIME
--- NOTE | 2020-06-15 20:58 | NUR ---
TR BAND REMOVED TR BAND REMOVED AT 2054. SITE WNL. TEGADERM AND ARM BOARD IN PLACE.
--- NOTE | 2020-06-16 02:00 | NUR ---
9 BEAT RUN OF V TACH PT HAD NO SYMPOMS WITH RUN OF V TACH.
[2020-06-16 04:48] LABS: Mean Platelet Volume 9.8 fL (9.1-12.4); Platelet Count 193 K/mm3 (150-400)
[2020-06-16 05:04] LABS: Bun/Creatinine Ratio 15.1 (12.0-20.0); Creatinine, Blood 1.39 mg/dL (0.60-1.20)
--- NOTE | 2020-06-16 05:24 | NUR ---
SHIFT SUMMARY PT ALERT AND ORIENTED X 4. HR STABLE. BP STABLE. PT REPORTS NO CP OR PRESSURE. PT TURNED Q 2 HRS. PT WORE CPAP T/O SHIFT. OXYGEN SATURATION MAINTAINED ABOVE 92%. R RADIAL SITE WNL. TEGADERM IN PLACE. DRESSING C/D/I. WILL CONTINUE TO MONITOR UNTIL REPORT GIVEN TO RIVERA GODDARD.
--- NOTE | 2020-06-16 10:36 | NUR ---
MORNING UPDATE PT HAS BEEN AWAKE, ALERT AND ORIENTED TODAY. VS STABLE, RADIAL ACCESS SITE WNL. PT DENIES CHEST PAIN OR DISCOMFORT. PT HAD 9 RUNS OF V-TACH DURING NOC SHIFT BUT WAS ASYMPTOMATIC. PT IS RESTING IN BED AT THIS TIME
[2020-06-16] MEDS ORDERED: PANT40 PO (15:13)
--- NOTE | 2020-06-16 16:51 | NUR ---
DISCHARGE PT WAS DISCHARGED TO HOME IN THE CARE OF HIS SPOUSE AT APPROXIMATELY 1635. PT LEFT VIA HIS PERSONAL POWER WHEELCHAIR. VS STABLE, BG STABLE, PT ON RA. PT'S PERSONAL CPAP WAS SENT HOME WITH HIM ALONG WITH OTHER PERSONAL BELONGINGS. PT AND HIS WERE GIVEN INSTRUCTIONS ON AFTERCARE FOR THE RADIAL ACCESS SITE WELL INSTRUCTIONS FOR NEW MEDICATIONS, TO CONTINUE METFORMIN IN 2 DAYS AFTER RETURNING HOME AND HOW AND WHEN TO FOLLOW UP OUTPATIENT. PT AND SPOUSE GAVE VERBAL UNDERSTANDING AND SIGNED DISCHARGE PAPERWORK.
== END 2020-06-16 16:38 | disposition home or self-care (01) | DRG 247 ==
LOC: ER 17:54 → ERHOLD 21:15 → PCU 21:15
PROVIDERS: Emergency Medicine; Family Medicine; Internal Medicine; ADMIT Internal Medicine
PROC: 5A09357 Assistance with Respiratory Ventilation, Less than 24 Consecutive Hours, Continuous Positive Airway Pressure (ICD-10-PCS; principal; 2020-06-15)
PROC: 027034Z Dilation of Coronary Artery, One Artery with Drug-eluting Intraluminal Device, Percutaneous Approach (ICD-10-PCS; 2020-06-15)
PROC: 4A023N7 Measurement of Cardiac Sampling and Pressure, Left Heart, Percutaneous Approach (ICD-10-PCS; 2020-06-15)
PROC: B2111ZZ Fluoroscopy of Multiple Coronary Arteries using Low Osmolar Contrast (ICD-10-PCS; 2020-06-15)
DX: I21.4 Non-ST elevation (NSTEMI) myocardial infarction (principal); I13.0 Hypertensive heart and chronic kidney disease with heart failure and stage 1 through stage 4 chronic kidney disease, or unspecified chronic kidney disease; I50.32 Chronic diastolic (congestive) heart failure; I47.1 Supraventricular tachycardia; I69.354 Hemiplegia and hemiparesis following cerebral infarction affecting left non-dominant side; Z20.822 Contact with and (suspected) exposure to COVID-19; I25.10 Atherosclerotic heart disease of native coronary artery without angina pectoris; E87.6 Hypokalemia; I44.7 Left bundle-branch block, unspecified; E11.22 Type 2 diabetes mellitus with diabetic chronic kidney disease; N18.30 Chronic kidney disease, stage 3 unspecified; E66.01 Morbid (severe) obesity due to excess calories; G47.33 Obstructive sleep apnea (adult) (pediatric); E11.43 Type 2 diabetes mellitus with diabetic autonomic (poly)neuropathy; K31.84 Gastroparesis; R00.1 Bradycardia, unspecified; K21.9 Gastro-esophageal reflux disease without esophagitis; E03.9 Hypothyroidism, unspecified; E78.00 Pure hypercholesterolemia, unspecified; M10.9 Gout, unspecified; Z68.33 Body mass index [BMI] 33.0-33.9, adult; Z88.5 Allergy status to narcotic agent; Z88.8 Allergy status to other drugs, medicaments and biological substances; Z79.899 Other long term (current) drug therapy; Z79.02 Long term (current) use of antithrombotics/antiplatelets; Z79.82 Long term (current) use of aspirin; Z79.4 Long term (current) use of insulin; Z87.891 Personal history of nicotine dependence
CPT/HCPCS: 0241U; 36415; 71046; 78452; 80048; 80053; 80061; 80069; 82947; 83735; 83880; 84132; 84484; 85025; 85049; 85347; 85610; 85730; 86850; 86900; 86901; 92928; 93005; 93010; 93017; 93306; 93458; 94762; 96372; 99152; 99153; 99285-25; A9270; A9500; C1725; C1769; C1874; C1887; C1894; C9600; G0378; J0706; J1644; J2250; J2785; J3010; J7030; J7050; Q9967

== ENCOUNTER 2021-01-08 11:42 | Emergency (ER) | payer OTHER ==
[~2021-01-08] VITALS: Ht 165.1 cm; Wt 113.4 kg
[~2021-01-08 11:42] MED LIST changes: +PANT40 PO
[2021-01-08 12:13] LABS: BASOPHILS ABSOLUTE AUTO 0.09 K/mm3 (0.00-0.23); BASOPHILS PERCENT AUTO 1 % (0-2); EOSINOPHILS PERCENT AUTO 3 % (0-6); Hematocrit 41.1 % (37.0-53.0); Hemoglobin 13.6 g/dL (13.5-17.5); IMMATURE GRAN ABSOLUTE AUTO 0.05 K/mm3 (0.00-0.10); IMMATURE GRAN PERCENT AUTO 1 % (0-1); LYMPHOCYTES ABSOLUTE AUTO 1.59 K/mm3 (0.84-5.20); LYMPHOCYTES PERCENT AUTO 16 % (21-46); MONOCYTES ABSOLUTE AUTO 0.74 K/mm3 (0.16-1.47); MONOCYTES PERCENT AUTO 7 % (4-13); Mean Corpuscular HGB 31.3 pg (26.0-34.0); Mean Corpuscular HGB Conc 33.1 g/dL (31.5-36.5); Mean Corpuscular Volume 95 fL (80-100); Mean Platelet Volume 9.8 fL (9.1-12.4); NEUTROPHILS ABSOLUTE AUTO 7.26 K/mm3 (1.96-9.15); NEUTROPHILS PERCENT AUTO 72 % (41-73); Platelet Count 180 K/mm3 (150-400); RDW Standard Deviation 48.9 fL (35.1-46.3); Red Blood Cell Count 4.34 M/mm3 (4.30-5.90); White Blood Cell Count 10.03 K/mm3 (4.00-11.30)
[2021-01-08 12:27] LABS: Bun/Creatinine Ratio 16.2 (12.0-20.0); Calcium, Blood 9.4 mg/dL (8.5-10.1); Creatinine, Blood 1.67 mg/dL (0.60-1.20); Potassium, Blood 3.6 mmol/L (3.5-5.5)
[2021-01-08 12:52] LABS: Source, Urine Clean Catch
[2021-01-08 12:58] LABS: Appearance, Urine Clear (Clear); Bilirubin, Urine Neg (Neg); Blood, Urine Neg (Neg); Color, Urine Yellow (P-Yellow); Glucose Qualitative, Urine 4+ (Neg); Ketones, Urine Neg (Neg); Leukocyte Esterase, Urine Neg (Neg); Nitrite, Urine Neg (Neg); Protein, Urine Neg (Neg); Urobilinogen, Urine NORM (Normal)
[2021-01-08] MEDS ORDERED: EPLE25 PO (13:10)
[2021-01-08] MEDS ORDERED: LOSA25 PO (13:10)
[2021-01-08] MEDS ORDERED: JARDIANCE25 MG PO (13:10)
[2021-01-08] MEDS ORDERED: WEGOVY0.5 MG/0.5 SQ (13:11)
== END 2021-01-08 16:20 | disposition home or self-care (01) ==
LOC: ER 11:42
PROVIDERS: Student in an Organized Health Care Education/Training Program
DX: R42 Dizziness and giddiness (principal); R53.1 Weakness; I12.9 Hypertensive chronic kidney disease with stage 1 through stage 4 chronic kidney disease, or unspecified chronic kidney disease; E11.22 Type 2 diabetes mellitus with diabetic chronic kidney disease; N18.30 Chronic kidney disease, stage 3 unspecified; E11.43 Type 2 diabetes mellitus with diabetic autonomic (poly)neuropathy; K31.84 Gastroparesis; E03.9 Hypothyroidism, unspecified; K21.9 Gastro-esophageal reflux disease without esophagitis; G47.33 Obstructive sleep apnea (adult) (pediatric); E66.01 Morbid (severe) obesity due to excess calories; Z88.8 Allergy status to other drugs, medicaments and biological substances; Z88.5 Allergy status to narcotic agent; Z79.899 Other long term (current) drug therapy; Z79.4 Long term (current) use of insulin; Z79.82 Long term (current) use of aspirin; Z87.891 Personal history of nicotine dependence; Z68.41 Body mass index [BMI] 40.0-44.9, adult
CPT/HCPCS: 36415; 80048; 81003; 83735; 85025; 93005; 93010; 99285-25

== ENCOUNTER 2021-10-11 17:38 | Emergency (ER) | payer OTHER ==
[~2021-10-11] VITALS: Ht 167.6 cm; Wt 109.8 kg
[~2021-10-11 17:38] MED LIST changes: +EPLE25 PO; +JARDIANCE25 MG PO; +LOSA25 PO; +WEGOVY0.5 MG/0.5 SQ
== END 2021-10-11 21:15 | disposition home or self-care (01) ==
LOC: ER 17:38
DX: U07.1 COVID-19 (principal); E66.01 Morbid (severe) obesity due to excess calories; I12.9 Hypertensive chronic kidney disease with stage 1 through stage 4 chronic kidney disease, or unspecified chronic kidney disease; N18.30 Chronic kidney disease, stage 3 unspecified; E11.22 Type 2 diabetes mellitus with diabetic chronic kidney disease; E11.43 Type 2 diabetes mellitus with diabetic autonomic (poly)neuropathy; K31.84 Gastroparesis; E03.9 Hypothyroidism, unspecified; G47.33 Obstructive sleep apnea (adult) (pediatric); Z88.8 Allergy status to other drugs, medicaments and biological substances; Z88.5 Allergy status to narcotic agent; Z79.899 Other long term (current) drug therapy; Z87.891 Personal history of nicotine dependence; Z79.4 Long term (current) use of insulin
CPT/HCPCS: 71045

== ENCOUNTER 2022-07-23 16:53 | Emergency (ER) | payer OTHER ==
[~2022-07-23] VITALS: Ht 165.1 cm; Wt 102.1 kg
[2022-07-23 17:16] LABS: BASOPHILS ABSOLUTE AUTO 0.04 K/mm3 (0.00-0.23); BASOPHILS PERCENT AUTO 0 % (0-2); EOSINOPHILS ABSOLUTE AUTO 0.02 K/mm3 (0.00-0.68); EOSINOPHILS PERCENT AUTO 0 % (0-6); Hematocrit 43.7 % (37.0-53.0); Hemoglobin 14.8 g/dL (13.5-17.5); IMMATURE GRAN ABSOLUTE AUTO 0.09 K/mm3 (0.00-0.10); IMMATURE GRAN PERCENT AUTO 1 % (0-1); LYMPHOCYTES ABSOLUTE AUTO 1.25 K/mm3 (0.84-5.20); LYMPHOCYTES PERCENT AUTO 9 % (21-46); MONOCYTES ABSOLUTE AUTO 0.95 K/mm3 (0.16-1.47); MONOCYTES PERCENT AUTO 7 % (4-13); Mean Corpuscular HGB 30.5 pg (26.0-34.0); Mean Corpuscular HGB Conc 33.9 g/dL (31.5-36.5); Mean Corpuscular Volume 90 fL (80-100); Mean Platelet Volume 9.6 fL (9.1-12.4); NEUTROPHILS PERCENT AUTO 84 % (41-73); Platelet Count 186 K/mm3 (150-400); RDW Coefficient Variation 13.2 % (11.7-14.2); Red Blood Cell Count 4.86 M/mm3 (4.30-5.90); White Blood Cell Count 14.35 K/mm3 (4.00-11.30)
[2022-07-23 17:37] LABS: Calcium, Blood 8.5 mg/dL (8.5-10.1); Creatinine, Blood 1.22 mg/dL (0.60-1.20); Potassium, Blood 3.6 mmol/L (3.5-5.5)
[2022-07-23 17:38] LABS: Albumin, Blood 3.3 g/dL (3.4-5.0); Bilirubin, Total 0.6 mg/dL (0.1-1.0); Globulin, Blood 3.4 g/dL (2.2-4.0); Total Protein, Blood 6.7 g/dL (6.4-8.2)
[2022-07-23 18:55] LABS: Source, Urine Clean Catch
[2022-07-23 19:00] LABS: Appearance, Urine Clear (Clear); Bilirubin, Urine Neg (Neg); Blood, Urine 2+ (Neg); Color, Urine Yellow (P-Yellow); Glucose Qualitative, Urine 4+ (Neg); Ketones, Urine Neg (Neg); Leukocyte Esterase, Urine 1+ (Neg); Nitrite, Urine Neg (Neg); Protein, Urine Neg (Neg); Urobilinogen, Urine NORM (Normal)
[2022-07-23 19:15] LABS: Bacteria Few /hpf; Red Blood Cells, Urine 0-2 /hpf (0-2); Squamous Epithelial Cells Rare /hpf (Few); Yeast/Fungi Urine Few /hpf
[2022-07-23 19:15] LABS: Influenza A, PCR NEGATIVE (NEGATIVE); Influenza B, PCR NEGATIVE (NEGATIVE); Resp Syncytial Virus, PCR NEGATIVE (NEGATIVE); SARS-Cov-2 (COVID-19) PCR, MMC NEGATIVE (NEGATIVE)
== END 2022-07-23 21:21 | disposition home or self-care (01) ==
LOC: ER 16:53
PROVIDERS: Emergency Medicine; Student in an Organized Health Care Education/Training Program
DX: R55 Syncope and collapse (principal); E11.22 Type 2 diabetes mellitus with diabetic chronic kidney disease; I12.9 Hypertensive chronic kidney disease with stage 1 through stage 4 chronic kidney disease, or unspecified chronic kidney disease; E66.01 Morbid (severe) obesity due to excess calories; N18.30 Chronic kidney disease, stage 3 unspecified; E03.9 Hypothyroidism, unspecified; Z86.73 Personal history of transient ischemic attack (TIA), and cerebral infarction without residual deficits; Z88.8 Allergy status to other drugs, medicaments and biological substances; Z88.5 Allergy status to narcotic agent; Z79.899 Other long term (current) drug therapy; Z79.4 Long term (current) use of insulin; Z79.890 Hormone replacement therapy; Z87.891 Personal history of nicotine dependence; Z20.822 Contact with and (suspected) exposure to COVID-19
CPT/HCPCS: 0241U; 71046; 80053; 81001; 84484; 85025; 87086; 93005; 93010; 99284-25; J7030

== ENCOUNTER 2023-02-04 16:51 | Emergency (ER) | payer OTHER ==
[~2023-02-04] VITALS: Ht 167.6 cm; Wt 102.1 kg
[2023-02-04] MEDS ORDERED: AMLO10 PO (17:14)
[2023-02-04] MEDS ORDERED: XARELTO20 MG PO (17:16)
[2023-02-04] MEDS ORDERED: CHLO25B PO (17:16)
[2023-02-04] MEDS ORDERED: OZEMPIC1 MG/0.72 SC (17:16)
[2023-02-04] MEDS ORDERED: NOVOLOG100 UNIT/3 SC (17:17)
[2023-02-04 17:27] LABS: BASOPHILS ABSOLUTE AUTO 0.09 K/mm3 (0.00-0.23); BASOPHILS PERCENT AUTO 1 % (0-2); EOSINOPHILS ABSOLUTE AUTO 0.22 K/mm3 (0.00-0.68); EOSINOPHILS PERCENT AUTO 2 % (0-6); Hematocrit 44.6 % (37.0-53.0); Hemoglobin 14.5 g/dL (13.5-17.5); IMMATURE GRAN ABSOLUTE AUTO 0.04 K/mm3 (0.00-0.10); IMMATURE GRAN PERCENT AUTO 0 % (0-1); LYMPHOCYTES ABSOLUTE AUTO 1.56 K/mm3 (0.84-5.20); LYMPHOCYTES PERCENT AUTO 15 % (21-46); MONOCYTES ABSOLUTE AUTO 0.71 K/mm3 (0.16-1.47); MONOCYTES PERCENT AUTO 7 % (4-13); Mean Corpuscular HGB 30.1 pg (26.0-34.0); Mean Corpuscular HGB Conc 32.5 g/dL (31.5-36.5); Mean Corpuscular Volume 93 fL (80-100); Mean Platelet Volume 9.8 fL (9.1-12.4); NEUTROPHILS ABSOLUTE AUTO 7.92 K/mm3 (1.96-9.15); NEUTROPHILS PERCENT AUTO 75 % (41-73); Platelet Count 173 K/mm3 (150-400); RDW Coefficient Variation 13.7 % (11.7-14.2); RDW Standard Deviation 46.7 fL (35.1-46.3); Red Blood Cell Count 4.81 M/mm3 (4.30-5.90); White Blood Cell Count 10.54 K/mm3 (4.00-11.30)
[2023-02-04 18:01] LABS: Albumin, Blood 3.5 g/dL (3.4-5.0); Albumin/Globulin Ratio 0.9 (0.8-1.8); Bilirubin, Total 0.5 mg/dL (0.1-1.0); Bun/Creatinine Ratio 15.2 (12.0-20.0); Calcium, Blood 9.1 mg/dL (8.5-10.1); Creatinine, Blood 1.32 mg/dL (0.60-1.20); Globulin, Blood 3.7 g/dL (2.2-4.0); Total Protein, Blood 7.2 g/dL (6.4-8.2)
[2023-02-04] MEDS ORDERED: ONDA4ODT MM (19:37)
[2023-02-04 19:45] VITALS: BP 141/65
== END 2023-02-04 19:49 | disposition home or self-care (01) ==
LOC: ER 16:51
PROVIDERS: Student in an Organized Health Care Education/Training Program
DX: H81.399 Other peripheral vertigo, unspecified ear (principal); R53.1 Weakness; I10 Essential (primary) hypertension; E11.9 Type 2 diabetes mellitus without complications; Z86.73 Personal history of transient ischemic attack (TIA), and cerebral infarction without residual deficits; Z88.5 Allergy status to narcotic agent; Z88.8 Allergy status to other drugs, medicaments and biological substances; Z79.02 Long term (current) use of antithrombotics/antiplatelets; Z79.01 Long term (current) use of anticoagulants; Z79.899 Other long term (current) drug therapy; Z87.891 Personal history of nicotine dependence
CPT/HCPCS: 80053; 85025; 93005; 93010; 96374; 99284-25; A9270; J0780

== ENCOUNTER 2023-11-05 15:12 | Emergency (ER) | payer OTHER ==
[~2023-11-05] VITALS: Ht 167.6 cm; Wt 99.8 kg
[~2023-11-05 15:12] MED LIST changes: +NOVOLOG100 UNIT/3 SC; +ONDA4ODT MM; +OZEMPIC1 MG/0.72 SC; +XARELTO20 MG PO
[2023-11-05] MEDS ORDERED: ASPI325 PO (15:53)
[2023-11-05] MEDS ORDERED: ATOR40TA PO (15:53)
[2023-11-05] MEDS ORDERED: GUAI600T33 PO (15:54)
[2023-11-05] MEDS ORDERED: INSULANI (15:54)
[2023-11-05] MEDS ORDERED: SYNJARDY 12.5-1 EAC3 PO (15:54)
[2023-11-05] MEDS ORDERED: DONEPEZIL HCL10 MG PO (15:54)
[2023-11-05] MEDS ORDERED: METO10 PO (15:55)
[2023-11-05] MEDS ORDERED: TRIA15CR3 TOP (15:55)
[2023-11-05] MEDS ORDERED: WEGOVY0.25 MG/0. SQ (15:55)
[2023-11-05 16:21] LABS: Albumin/Globulin Ratio 0.9 (0.8-1.8); Bilirubin, Total 0.9 mg/dL (0.1-1.0); Bun/Creatinine Ratio 17.5 (12.0-20.0); Calcium, Blood 8.3 mg/dL (8.5-10.1); Creatinine, Blood 1.37 mg/dL (0.60-1.20); Globulin, Blood 3.2 g/dL (2.2-4.0); Magnesium, Blood 1.9 mg/dL (1.6-2.4); Potassium, Blood 4.1 mmol/L (3.5-5.5); Total Protein, Blood 6.2 g/dL (6.4-8.2)
[2023-11-05 16:26] LABS: BASOPHILS ABSOLUTE AUTO 0.07 K/mm3 (0.00-0.23); BASOPHILS PERCENT AUTO 1 % (0-2); EOSINOPHILS ABSOLUTE AUTO 0.13 K/mm3 (0.00-0.68); EOSINOPHILS PERCENT AUTO 2 % (0-6); Hematocrit 42.7 % (37.0-53.0); Hemoglobin 14.4 g/dL (13.5-17.5); IMMATURE GRAN ABSOLUTE AUTO 0.03 K/mm3 (0.00-0.10); IMMATURE GRAN PERCENT AUTO 0 % (0-1); LYMPHOCYTES ABSOLUTE AUTO 1.39 K/mm3 (0.84-5.20); LYMPHOCYTES PERCENT AUTO 16 % (21-46); MONOCYTES PERCENT AUTO 7 % (4-13); Mean Corpuscular HGB 31.2 pg (26.0-34.0); Mean Corpuscular HGB Conc 33.7 g/dL (31.5-36.5); Mean Corpuscular Volume 92 fL (80-100); NEUTROPHILS ABSOLUTE AUTO 6.44 K/mm3 (1.96-9.15); NEUTROPHILS PERCENT AUTO 74 % (41-73); RDW Standard Deviation 47.2 fL (35.1-46.3); Red Blood Cell Count 4.62 M/mm3 (4.30-5.90); White Blood Cell Count 8.66 K/mm3 (4.00-11.30)
[2023-11-05 17:00] LABS: Mean Platelet Volume 10.4 fL (9.1-12.4); Platelet Count 165 K/mm3 (150-400)
[2023-11-05] MEDS ORDERED: Furosemide 10 MG / ML 2ML Vial IV ONE (19:15)
[2023-11-05] MEDS ORDERED: Metoprolol Succinate 25 MG TABCR PO ONE (19:30)
[2023-11-05] MEDS ORDERED: Toprol Xl25 MG PO (20:09)
[2023-11-05] MEDS ORDERED: XARELTO20 MG PO (20:09)
[2023-11-05] MEDS ORDERED: Lasix20 MG PO (21:28)
[2023-11-05 21:30] VITALS: BP 130/86
== END 2023-11-05 22:17 | disposition home or self-care (01) ==
LOC: ER 15:12
PROVIDERS: Emergency Medicine
DX: I13.0 Hypertensive heart and chronic kidney disease with heart failure and stage 1 through stage 4 chronic kidney disease, or unspecified chronic kidney disease (principal); I50.9 Heart failure, unspecified; I48.91 Unspecified atrial fibrillation; E11.22 Type 2 diabetes mellitus with diabetic chronic kidney disease; N18.30 Chronic kidney disease, stage 3 unspecified; E78.00 Pure hypercholesterolemia, unspecified; E03.9 Hypothyroidism, unspecified; K21.9 Gastro-esophageal reflux disease without esophagitis; Z88.8 Allergy status to other drugs, medicaments and biological substances; Z88.5 Allergy status to narcotic agent; Z79.899 Other long term (current) drug therapy; Z79.82 Long term (current) use of aspirin; Z79.4 Long term (current) use of insulin
CPT/HCPCS: 71045; 80053; 83735; 83880; 84484; 85025; 93005; 93010; 96374; 99285-25; A9270; J1940